=== PATIENT | male | born 2000 | race Hispanic/Latino ===

== ENCOUNTER 2025-02-05 23:12 | Emergency (ER) | payer SELFPAY ==
[2025-02-05 23:12] VITALS: BMI 34.8
[2025-02-05 23:35] VITALS: BP 144/86
[2025-02-05 23:56] LABS: Hematocrit 43.1 % (39.0-52.0); Hemoglobin 14.9 g/dL (13.0-18.0); Mean Corp Hgb Conc. 34.6 g/dL (33.0-37.0); Mean Corpuscular Volume 81.9 fL (80.0-94.0); Nucleated Red Blood Cells % 0 % (-); Platelet Count 485 10^3/uL (130-400); Red Cell Dist. Width 12.9 % (11.5-14.5)
[2025-02-06] LABS: Urine Character Clear (Clear)
[2025-02-06 00:21] LABS: ALT (SGPT) 72 U/L (0-50); AST (SGOT) 37 U/L (17-59); Albumin 4.4 g/dl (3.5-5.0); Alkaline Phosphatase 117 U/L (38-126); Blood Urea Nitrogen 11 mg/dl (9-20); Calcium 9.4 mg/dl (8.4-10.2); Carbon Dioxide 26 mmol/L (22-30); Chloride 106 mmol/L (98-107); Glucose 129 mg/dl (70-99); Lipase 57 U/L (23-300); Potassium 4.2 mmol/L (3.5-5.1); Sodium 137 mmol/L (135-145); Total Protein 7.7 g/dl (6.3-8.2); eGFR > 60.00
[2025-02-06 00:38] LABS: Urine White Cell None Seen /HPF (0-5)
[2025-02-06 02:03] VITALS: BP 116/74
[2025-02-06 03:00] VITALS: BP 104/67
--- NOTE | 2025-02-06 03:46 | ED.GENMED ---
History of Present Illness
General
Chief Complaint: Abdominal Pain
Source: patient and family
Exam Limitations: none
Time Seen by Provider: 02/06/25 03:36
Nursing documentation reviewed up to this point in time: agreed with except (Patient complains of right flank to right upper quadrant pain.)
History of Present Illness
History of Present Illness:
24-year-old primarily Nepali-speaking male with no significant past medical history presents with several day history of intermittent right flank to right upper quadrant pain. No history of similar episodes in the past. No associated symptoms.
He denies injury or fall.
He denies cough no shortness of breath no chest pain. No fever no chills. No dysuria no urgency no hematuria. No diarrhea or constipation.
Past History
Past History
ED Past Medical History: None
ED Past Surgical History: None
Social History
Tobacco: Non-smoker
Personal: Single
Living: with family
Employment: Employed
Family History
Family History: Other (Noncontributory)
Phy Exam
Physical Exam
Physical Exam:
GENERAL: 24-year-old overweight male appears his stated age, bright and alert, pleasant, appears in no acute distress. Family member accompanying and is assisting with interpretation.
EYE: anicteric
NECK: Supple, nontender, no meningismus, no significant adenopathy.
ENT: oral mucosa is moist. No rhinorrhea.
CARDIAC: Regular rate and rhythm. no murmur.
LUNGS: Clear breath sounds bilaterally, no acute respiratory distress, no wheezes/rales/rhonchi
ABDOMEN: Soft, nondistended, without focal tenderness, no r/g, no cvat. normoactive BS.
NEUROLOGICAL: Alert and oriented x3, no focal neuro deficits.
SKIN: Warm and dry, normal color, skin intact. No rash.
MUSCULOSKELETAL: No C/C/E. peripheral pulses are full and equal b/l. No palpable tenderness.
PSYCH: Normal and appropriate interaction.
Course
Orders/Labs/Results
Orders:
Orders
02/05/25 23:44
Complete Blood Count/With Diff Urgent
Comprehensive Metabolic Panel Urgent
Lipase Urgent
Urinalysis Urgent
Date Specimen was Collected: 02/05/25
Time Specimen was Collected: 23:38
Urine Microscopic Urgent
Date Specimen was Collected: 02/05/25
Time Specimen was Collected: 23:38
02/06/25 03:45
CT Abd/pel Without Iv Or Oral Urgent
Comment:
Reason For Exam: RUQ, R flank pain-intermittent few days
Abnormal Lab Results
02/05/25
23:44
Plt Count 485 H 10^3/uL
(130-400)
Absolute Lymphs (auto) 3.9 H 10^3/uL
(1.2-3.4)
Absolute Monos (auto) 0.7 H 10^3/uL
(0.1-0.6)
Glucose 129 H mg/dl
(70-99)
ALT 72 H U/L
(0-50)
Urine Occult Blood 1+ A
(Negative)
Urine RBC 3-6 A /HPF
(0-2)
Urine Albumin 2+ A
(Neg - Trace)
02/05/25 23:44
02/05/25 23:44
Vital Signs
Initial and Last Documented VS:
Initial Vital Signs
Temp Pulse Resp BP Pulse Ox
98.1 F 50 20 144/86 98
02/05/25 23:35 02/05/25 23:35 02/05/25 23:35 02/05/25 23:35 02/05/25 23:35
Last Documented Vital Signs
Temp Pulse Resp BP Pulse Ox
98.1 F 63 20 107/75 97
02/05/25 23:35 02/06/25 02:15 02/05/25 23:35 02/06/25 04:00 02/06/25 04:00
MDM/Problems Addressed
Differential Diagnosis Includes:
Concern for ureteric stone/renal colic, cholecystitis, pancreatitis, gastritis, constipation.
Currently comfortable and pain-free.
Labs are unremarkable. Urinalysis shows scant microscopic hematuria with calcium oxalate crystals.
Will check CT abdomen pelvis.
*Radiology
Radiology exam reviewed: radiology read reviewed
*Pulse Oximetry
SaO2: 98
Oxygen Mode of Delivery: Room air
Patient hypoxic: no
*Critical Care Note
Total Time (30-74mins, 75-104mins- exclusive of procedures): Not Applicable
Update Note
Update Note:
Patient remains comfortable and pain-free.
Abdomen is soft without appreciable tenderness.
CT of the abdomen pelvis is unremarkable.
With calcium oxalate crystals in the urine, patient may have recently passed a stone.
Other consideration is musculoskeletal pain.
Discussed importance of remaining well-hydrated on a daily basis.
May take Tylenol versus ibuprofen as needed for discomfort.
Will refer to our free clinic for follow-up as needed.
ED Attending Note
-
Portions of this chart may have been created with voice recognition software.� Occasional wrong word or��sound alike� substitutions may have occurred due to the inherent limitations of voice recognition software.
Discharge Plan
Departure
Patient Disposition: Home (Routine Discharge)
Date of Disposition: 02/06/25
Time of Disposition: 05:43
Patient with high blood pressure during this ER visit?: No
Condition: Good
Discharge Problem:
Acute abdominal pain in right flank
Instructions: Flank pain - ED discharge instructions
Prescriptions:
No Action
No Current Medications
0
Referrals:
[facility] - Call in 1-3 days for appt
UNKNOWN - PT DOES,NOT KNOW [Family Provider]
Interventions
Interventions:
*Risk Screen - Suicide Last Done: 02/05/25 23:35
*Neglect/Abuse Screening Last Done: 02/05/25 23:35
*ED- Fall Risk Assessment Last Done: 02/06/25 02:15
*ED COVID-19 Vaccine History Last Done: 02/06/25 02:15
DO-Qnjjzy-Xhcczimogk Assessment Last Done: 02/06/25 02:15
Discharge Date and Time
Print Language: [place]
[2025-02-06 04:00] VITALS: BP 107/75
== END 2025-02-06 05:50 | disposition home or self-care (01) ==
LOC: EMR 23:12
PROVIDERS: EMERGENCY PHYSICIAN Emergency Medicine
DX: R10.11 Right upper quadrant pain (principal); R31.29 Other microscopic hematuria
CPT/HCPCS: 99284; 74176; 80053; 81003; 81015; 83690; 85025